=== PATIENT | male | born 1975 ===

== ENCOUNTER 2020-12-27 23:00 | Emergency (ER) | payer OTHER ==
[2020-12-27 23:32] VITALS: BP 130/95; PULSE 66; TEMP 98.7; BMI 30.5
[2020-12-27] MEDS ORDERED: diphenhydrAMINE HCL 50 MG CAPSULE PO ONE (23:49)
[2020-12-27] MEDS ORDERED: predniSONE 20 MG TABLET (UD) PO ONE (23:50)
[2020-12-27] MEDS ORDERED: FAMOTIDINE 20 MG TABLET PO ONE (23:50)
== END 2020-12-28 00:35 | disposition home or self-care (01) ==
LOC: FER 23:00
DX: T78.40XA Allergy, unspecified, initial encounter (principal)
CPT/HCPCS: 99283-25